=== PATIENT | female | born 1955 | race Hispanic/Latino ===

== ENCOUNTER 2016-07-05 05:06 | Emergency (ER) | payer MEDICARE ==
[2016-07-05 05:07] VITALS: BMI 24.3
[2016-07-05 05:23] VITALS: BP 136/73; PULSE 111; RESP 17; TEMP 97.6; O2SAT 97
--- NOTE | 2016-07-05 05:30 | ED PDOC ---
Upper Extremity Pain/Injury Time Seen by Provider: 07/05/16 05:17 Chief Complaint (Nursing): Upper Extremity Problem/Injury Chief Complaint (Provider): left hand pain History Per: Patient History/Exam Limitations: no limitations Onset/Duration Of Symptoms: Hrs (7) Current Symptoms Are (Timing): Still Present Hands/Wrist (Pic): 1 - Tenderness, Pain Worse W/Movement Additional History Per: Patient Additional Complaint(s): 61 y/o female presents with left wrist/hand pain x 7 hours. Patient states she tripped going down stairs and fell down 3 steps; patient states she put her hands out to break her fall. Patient notes pain upon waking up this am, which prompted ED visit. Pain worse with movement of wrist. Denies numbness/ weakness left upper extremity, limitation of movement. Past Medical History Reviewed: Historical Data, Nursing Documentation, Vital Signs Vital Signs: Last Vital Signs Temp 97.6 F 07/05/16 05:19 Pulse 111 H 07/05/16 05:19 Resp 17 07/05/16 05:19 BP 136/73 07/05/16 05:19 Pulse Ox 97 07/05/16 05:19 - Medical History PMH: Bipolar Disorder, Depression, HTN, Hypothyroidism, Parkinson's Disease (pt denies but is in old chart), Personality Disorder - Surgical History Surgical History: No Surg Hx - Family History Family History: States: Unknown Family Hx - Immunization History Hx Tetanus Toxoid Vaccination: No (pt unsure of last tetanus vaccine) - Home Medications Home Medications: Ambulatory Orders Medication Instructions Recorded Amlodipine Besylate [Norvasc] 5 mg PO DAILY 03/07/12 Haloperidol [Haldol] 5 mg PO TID 03/07/12 Levothyroxine Sodium 0.1 mg PO 03/07/12 [Levothyroxine] Lorazepam [Ativan] 1 mg PO QID 03/07/12 OLANZapine [ZyPREXA] 10 mg PO 03/07/12 Bacitracin Ointment [Bacitracin] 0 gm TOP DAILY #30 gm 01/08/14 Cephalexin [Keflex] 1 tab PO QID #20 capsule 05/07/16 Naproxen [Naprosyn Tab] 375 mg PO Q12 PRN #20 tab 07/05/16 - Allergies Allergies/Adverse Reactions: Allergies Allergy/AdvReac Type Severity Reaction Status Date / Time No Known Allergies Allergy Verified 05/07/16 13:00 Review of Systems ROS Statement: Except As Marked, All Systems Reviewed And Found Negative Musculoskeletal: Positive for: Hand Pain (left) Physical Exam - Reviewed Nursing Documentation Reviewed: Yes Vital Signs Reviewed: Yes - Physical Exam Appears: Positive for: Well, Non-toxic, No Acute Distress Pulses-Radial (L): 2+ Pulses-Radial (R): 2+ Extremity: Positive for: Normal ROM, Tenderness (diffuse tenderness dorsal, palmar aspect left hand; no swelling, deformity noted. Tender to palpate radial aspect left wrist. FROM, pain with flexion/extension wrist. No swelling/ deformity noted), Capillary Refill (<2 sec b/l UE). Negative for: Deformity, Swelling Neurologic/Psych: Positive for: Alert, Oriented. Negative for: Motor/Sensory Deficits - ECG O2 Sat by Pulse Oximetry: 97 - Progress ED Course And Treament: xray's, ibuprofen Disposition - Clinical Impression Clinical Impression: Hand pain, Wrist contusion - Disposition Referrals: Abisai Smith MD [Staff Provider] - Catracho Dias MD [Primary Care Provider] - Disposition: Transfer of Care Disposition Time: 06:01 Condition: STABLE Prescriptions: Naproxen [Naprosyn Tab] 375 mg PO Q12 PRN #20 tab PRN Reason: Pain, Moderate (4-7) Instructions: Wrist Sprain (ED) Patient Signed Over To: Abner Rivas Handoff Comments: pending xrays
--- NOTE | 2016-07-05 06:22 | ED PDOC ---
- ECG O2 Sat by Pulse Oximetry: 97 Medical Decision Making Medical Decision Makin:00 Patient signed out to me by Georgia Mancuso. Pending XR and re-evaluation 6:15 XR reviewed and shows no fx or dislocation. diagnosis is left wrist contusion. Patient was placed in a wrist splint and advised to follow up with Orthopedist. Patient feels better. Discussed results and plan with patient who expresses understanding. Counseling was provided regarding the diagnosis and prognosis. All questions answered and there is agreement with the plan to discharge home with instructions. Patient stable for discharge. Return if symptoms persist or worsen. Disposition Counseled Patient/Family Regarding: Studies Performed, Diagnosis, Need For Followup, Rx Given - Clinical Impression Clinical Impression: Hand pain, Wrist contusion - POA Present On Arrival: None - Disposition Referrals: Abisai Smith MD [Staff Provider] - Catracho Dias MD [Primary Care Provider] - Disposition: Routine/Home Disposition Time: 06:15 Condition: STABLE Prescriptions: Naproxen [Naprosyn Tab] 375 mg PO Q12 PRN #20 tab PRN Reason: Pain, Moderate (4-7) Instructions: Wrist Sprain (ED)
--- NOTE | 2016-07-05 09:41 | RAD ---
PROCEDURE: Left Hand Radiographs. HISTORY: fall, pain COMPARISON: None. FINDINGS: BONES: Normal. No fracture. JOINTS: Normal. No osteoarthritic changes. SOFT TISSUES: Normal. OTHER FINDINGS: None. IMPRESSION: Normal left hand radiographs.
--- NOTE | 2016-07-05 09:41 | RAD ---
PROCEDURE: Left Wrist Radiographs. HISTORY: fall, pain COMPARISON: None. FINDINGS: BONES: Normal. No fracture. JOINTS: Normal. No dislocation. SOFT TISSUES: Normal. OTHER FINDINGS: None. IMPRESSION: Normal left wrist radiographs.
== END 2016-07-05 06:34 | disposition home or self-care (01) ==
LOC: H.ER 05:06
DX: S60.212A Contusion of left wrist, initial encounter (principal); W10.9XXA Fall (on) (from) unspecified stairs and steps, initial encounter; Y92.89 Other specified places as the place of occurrence of the external cause

== ENCOUNTER 2017-09-27 08:01 | Day surgery (SDC) | payer MEDICARE ==
[2017-09-27] MEDS ORDERED: Lactated Ringer's 500 ML IV ONE (09:10)
[2017-09-27 10:19] VITALS: BMI 20.5
[2017-09-27] MEDS ORDERED: Propofol 10 mg/ml Inj (20 ML) ONE (10:28)
[2017-09-27 11:10] VITALS: RESP 20; TEMP 97.9
[2017-09-27 11:11] VITALS: BP 104/66; PULSE 72; O2SAT 98
== END 2017-09-27 11:35 | disposition home or self-care (01) ==
LOC: H.ENDO 08:01
PROVIDERS: ATTEND Internal Medicine Gastroenterology
DX: R19.7 Diarrhea, unspecified (principal); I10 Essential (primary) hypertension; F32.9 Major depressive disorder, single episode, unspecified; E07.9 Disorder of thyroid, unspecified; F41.9 Anxiety disorder, unspecified; R63.4 Abnormal weight loss; K64.1 Second degree hemorrhoids
CPT/HCPCS: 45380; 88305; J2001; J2704; J7120